=== PATIENT | female | born 1985 | race Hispanic/Latino ===

== ENCOUNTER 2019-04-14 09:09 | Day surgery (SDC) | payer BC ==
[~2019-04-14] VITALS: Ht 154.9 cm; Wt 83.5 kg
[2019-04-14] VITALS (19 sets, daily range): BP systolic 110–124; BP diastolic 44–78
[2019-04-14] MEDS ORDERED: IOHEXOL-350 50ML VIAL IV ONE (10:47)
[2019-04-14] MEDS ORDERED: SODIUM CHLORIDE 0.9% 1000ML 1,000 ML IV ONE (11:32)
[2019-04-14] MEDS ORDERED: INDOMETHACIN 50 MG SUPP.RECT RC ONE (12:00)
[2019-04-14] MEDS ORDERED: SUCCINYLCHOLINE CHLORIDE 20 MG/ML 10 ML VIAL ONE (12:08)
[2019-04-14] MEDS ORDERED: PROPOFOL 10 MG/ML 20ML VIAL IV ONE (12:08)
== END 2019-04-14 15:30 | disposition home or self-care (01) ==
LOC: ENDO 09:09
PROVIDERS: ATTEND Internal Medicine
DX: R17 Unspecified jaundice (principal); K83.8 Other specified diseases of biliary tract; Z90.49 Acquired absence of other specified parts of digestive tract; Z72.89 Other problems related to lifestyle; E66.9 Obesity, unspecified; Z68.34 Body mass index [BMI] 34.0-34.9, adult; Z82.49 Family history of ischemic heart disease and other diseases of the circulatory system; Z83.3 Family history of diabetes mellitus
CPT/HCPCS: 43262; 43264; 74328; A4215; A4221; A4222; A4223; A4606; A4615; A4663; C1769; C1773; J0330; J2704; J7030; Q9967; 74330